=== PATIENT | female | born 1995 | race Caucasian/White ===

== ENCOUNTER 2018-05-04 18:24 | Emergency (ER) | payer SELFPAY ==
[~2018-05-04] VITALS: Ht 172.7 cm; Wt 65.8 kg
[2018-05-04 18:30] VITALS: BP 107/73
--- NOTE | 2018-05-04 18:42 | Emergency Room Report ---
History of Present Illness General Chief Complaint: Upper Extremity Injury Source: Patient Present Illness HPI 22-year-old female presents emergency department complaining of 10 out of 10 in severity localized pain to the hand as well as the mid right forearm status post mechanical fall while walking up some stairs times one day. Patient denies hitting her head or loss of consciousness she denies neck or back pain. She reports some pain in the right middle finger as well. Patient reports some swelling denies bruising, open wounds or bleeding. Denies numbness tingling or loss of sensation or gross motor movements of the extremities, incontinence of bowel or bladder. Denies CP, Palpitations, LOC, AMS, dizziness, Changes in Vision, weakness or a sudden severe headache. Allergies: Coded Allergies: AMOXICILLIN (Verified Allergy, Severe, Hives, 05/04/18) PENICILLINS (Verified Allergy, Severe, Hives, 05/04/18) Patient History Past Medical History: see triage record Past Surgical History: none Pertinent Family History: none Last Menstrual Period: last week Now: No Immunizations: UTD Reviewed Nursing Documentation: PMH: Agreed; PSxH: Agreed Nursing Documentation-PMH Past Medical History: No Stated History Review of Systems All Other Systems: negative except mentioned in HPI Physical Exam Vital Signs Date Time Temp Pulse Resp B/P (MAP) Pulse Ox O2 Delivery O2 Flow Rate FiO2 05/04/18 18:30 97.9 83 18 107/73 98 97.9 Sp02 EP Interpretation: reviewed, normal General Appearance: no apparent distress, alert, GCS 15, non-toxic Head: normocephalic, atraumatic ENT: hearing grossly normal, normal voice Neck: full range of motion Respiratory: lungs clear, normal breath sounds, speaking full sentences Cardiovascular #1: regular rate, rhythm, normal capillary refill Musculoskeletal: back normal, gait/station normal, normal range of motion, tender - TTP to the Right dorsal hand / metacarpals of the 2nd and third digits. and dorsolateral right forearm. no snuffbox ttp. no pain at the wrist. Neurologic: alert, oriented x3, responsive, motor strength/tone normal, sensory intact, speech normal, grossly normal Psychiatric: judgement/insight normal Skin: normal color, no rash, warm/dry, well hydrated Lymphatic: no adenopathy Medical Decision Making PA Attestation Dr. brown is my supervising Physician whom patient management has been discussed with. Diagnostic Impression: Primary Impression: Contusion of forearm, right Qualified Codes: S50.11XA - Contusion of right forearm, initial encounter Additional Impressions: Hand sprain Qualified Codes: S63.91XA - Sprain of unspecified part of right wrist and hand , initial encounter Contusion of hand, right Qualified Codes: S60.221A - Contusion of right hand, initial encounter ER Course 22-year-old female presents emergency department complaining of 10 out of 10 in severity localized pain to the hand as well as the mid right forearm status post mechanical fall while walking up some stairs times one day. Patient denies hitting her head or loss of consciousness she denies neck or back pain. She reports some pain in the right middle finger as well. Patient reports some swelling denies bruising, open wounds or bleeding. Denies numbness tingling or loss of sensation or gross motor movements of the extremities, incontinence of bowel or bladder. Denies CP, Palpitations, LOC, AMS, dizziness, Changes in Vision, weakness or a sudden severe headache. Ddx considered but are not limited to Fracture, dislocation, contusion, Sprain/ Strain/Spasm,. Vital signs: are WNL, pt. is afebrile H&PE are most consistent with musculoskeletal injury will perform imaging to r/ o fractures/dislocations. ORDERS: - X-ray Right hand 3 views, and right Forearm 2 views - negative for fx, Dislocation, or significant soft tissue injury, per preliminary read in ED, and signed by KELL Funes, my supervising physician has reviewed, and agrees with my interpretation. ED INTERVENTIONS: - Bailey PO - ice packs to the affected areas. - Wrist Splint applied to the right wrist by dialysis patient care techniciantech. [place] Pt. remains neurovascularly intact. DISCHARGE: At this time pt. is stable for d/c to home. Will provide printed patient care instructions, and any necessary prescriptions. Care plan and follow up instructions have been discussed with the patient prior to discharge. Other X-Ray Diagnostic Results Other X-Ray Diagnostic Results #1: X-Ray ordered: Right hand # of Views/Limited Vs Complete: 3 View Indication: Pain EP Interpretation: Yes KELL Xray: Interpretation reviewed, by supervising MD, and agrees with findings. Interpretation: no dislocation, no soft tissue swelling, no fractures Impression: No acute disease Electronically Signed by: Tess Funes PA-C Other X-Ray Diagnostic Results #2: X-Ray ordered: Right Forearm # of Views/Limited Vs Complete: 2 View Indication: Pain EP Interpretation: Yes PA Xray: Interpretation reviewed, by supervising MD, and agrees with findings. Interpretation: no dislocation, no soft tissue swelling, no fractures Impression: No acute disease Electronically Signed by: Tess Funes PA-C Last Vital Signs Date Time Temp Pulse Resp B/P (MAP) Pulse Ox O2 Delivery O2 Flow Rate FiO2 05/04/18 18:30 97.9 83 18 107/73 98 97.9 Disposition: HOME, SELF-CARE Condition: Stable Scripts Ibuprofen* (MOTRIN*) 600 Mg Tablet 600 MG ORAL THREE TIMES A DAY, #30 TAB 0 Refills Prov: Tess Funes 05/04/18 Patient Instructions: Contusion, [id number] Additional Instructions: Take medications as directed. Follow up with a Primary Care Provider in 3-5 days, even if your symptoms have resolved. --Please review list of primary care clinics, if you do not already have a primary care provider Return sooner to ED if new symptoms occur, or current symptoms become worse. Do not drink alcohol, drive, or operate heavy machinery while taking [ ] as this may cause drowsiness. - Please note that this Emergency Department Report was dictated using [employer] of quality technology software, occasionally this can lead to erroneous entry secondary to interpretation by the dictation equipment. Tess Funes May 04, 2018 18:42
[2018-05-04] MEDS ORDERED: Norco 5mg/325mg tab ORAL ONE (18:45)
[2018-05-04] MEDS ORDERED: IBUPROFEN600 MG ORAL (19:36)
--- NOTE | 2018-05-05 12:00 | Diagnostic Imaging Report ---
Indication: pain Right hand pain Findings: 3 views of the right hand were obtained. Normal bony mineralization and alignment are demonstrated. No acute fractures, erosions, or periosteal reaction are seen. Soft tissues are unremarkable. Impression: No acute findings.
--- NOTE | 2018-05-05 12:25 | Diagnostic Imaging Report ---
Indication: Pain Findings: 2 views of the right forearm were obtained. No acute fractures, malalignment, erosions or periostitis are identified. . Soft tissues are unremarkable. Impression: Negative for acute injury
== END 2018-05-04 19:45 | disposition home or self-care (01) ==
LOC: EMR 18:53
DX: S50.11XA Contusion of right forearm, initial encounter (principal); S63.91XA Sprain of unspecified part of right wrist and hand, initial encounter; W10.9XXA Fall (on) (from) unspecified stairs and steps, initial encounter; Y92.9 Unspecified place or not applicable; Z88.0 Allergy status to penicillin
CPT/HCPCS: 99283